=== PATIENT | female | born 1995 | race Two or more races ===

== ENCOUNTER 2024-12-07 08:57 | Emergency (ER) | payer MEDICAID ==
[~2024-12-07] VITALS: Ht 165.1 cm; Wt 66.2 kg
[2024-12-07 09:04] VITALS: BP 114/72; TEMP 98.2
[2024-12-07] MEDS ORDERED: ACETAMINOPHEN ES 500 MG TABLET ONE (09:27)
[2024-12-07] MEDS: ACETAMINOPHEN ES 500 MG TABLET PO ONE (09:29)
[2024-12-07] MEDS ORDERED: IBUP-1957 PO (10:45)
[2024-12-07 10:52] VITALS: O2SAT 99
== END 2024-12-07 10:53 | disposition home or self-care (01) ==
LOC: ER 09:06
DX: S62.652A Nondisplaced fracture of middle phalanx of right middle finger, initial encounter for closed fracture (principal); W18.39XA Other fall on same level, initial encounter; Y93.89 Activity, other specified; Y92.89 Other specified places as the place of occurrence of the external cause; Y99.8 Other external cause status
CPT/HCPCS: 73130-TC